=== PATIENT | male | born 1960 | race Caucasian/White ===

== ENCOUNTER 2019-04-06 01:31 | Emergency (ER) | payer OTHER ==
[~2019-04-06] VITALS: Ht 162.6 cm; Wt 100.7 kg
[~2019-04-06 01:31] MED LIST: ALPRAZOLAM0.25 MG PO; ANDROGEL2.5 G1 IM; ASPIRIN EC81 MG PO; CRUTCH1 EACH; FISH OIL 1,0001 EAC5 PO; HYDROCODON-ACE1 EA11 PO; OXYBUTYNIN CHLO15 MG PO; SERTRALINE HCL50 MG PO
--- OUTSIDE RECORDS SUMMARY | 2019-04-06 01:34 | XMS ---
PreManage Notification: ESTEBAN GARRETT Security [employer] Events No recent Security Events currently on file CRITERIA MET - [facility] Abelardo White Treatment Current PHONE: Unknown Jossy [place] Lizzy Current Orthopedic Surgery \T\ Fracture Clinic PHONE: Unknown Amanda has no Care Guidelines for this patient. Lisa VISIT COUNT (12 MO.) Keegan Cherry TOTAL 1 NOTE: Visits indicate total known visits. ED/UCC VISIT TRACKING (12 MO.) 04/06/2019 01:[address] [facility] TYPE: Emergency COMPLAINT: - CHEST PAIN/SOB INPATIENT VISIT TRACKING (12 MO.) No inpatient visits to display in this time frame [id number]
[2019-04-06] MEDS ORDERED: ESCITALOPRAM OX10 MG PO (01:38)
[2019-04-06] MEDS ORDERED: CILOSTAZOL100 MG PO (01:38)
[2019-04-06] MEDS ORDERED: GABAPENTIN300 MG PO (01:38)
[2019-04-06] MEDS ORDERED: QUETIAPINE FUM100 MG PO (01:39)
[2019-04-06] MEDS ORDERED: ATORVASTATIN CA10 MG PO (01:39)
--- NOTE | 2019-04-06 07:20 | EKG ---
[facility] [address] [facility] [place] [address] Signed Normal sinus rhythm Nonspecific T wave abnormality Prolonged QT Abnormal ECG No previous ECGs available Confirmed by TAHIR STARKEY MD ([id number]) on 04/06/2019 7:20:15 AM Electronically Signed By: TAHIR STARKEY MD 04/06/19 0720 PATIENT NAME: ESTEBAN GARRETT Electrocardiogram DATE OF : 60 PHYSICIAN: TAHIR STARKEY MD REPORT #: [id number] REPORT IS CONFIDENTIAL AND NOT TO BE RELEASED WITHOUT AUTHORIZATION
== END 2019-04-06 07:45 | disposition home or self-care (01) ==
LOC: ED 01:31
DX: R07.9 Chest pain, unspecified (principal); F41.9 Anxiety disorder, unspecified; Z87.891 Personal history of nicotine dependence; Z79.82 Long term (current) use of aspirin; Z79.899 Other long term (current) drug therapy
CPT/HCPCS: 71045; 80053; 83735; 84484; 85025; 93005; 93010; 99285-25

== ENCOUNTER 2019-08-15 06:20 | Day surgery (SDC) | payer OTHER ==
[~2019-08-15] VITALS: Ht 167.6 cm; Wt 103.4 kg
[~2019-08-15 06:20] MED LIST changes: +ANDROGEL2.5 G1 TD; +ATORVASTATIN CA10 MG PO; +CILOSTAZOL100 MG PO; +ESCITALOPRAM OX10 MG PO; +FISH OIL 1,0001 EAC2 PO; +GABAPENTIN300 MG PO; +QUETIAPINE FUM100 MG PO
--- NOTE | 2019-08-15 09:29 | NUR ---
08/15/19 0929 PRESTON MARQUEZ PATIENT ARRIVED FROM THE ENDO ROOM ON 2L OF OXYGEN. PATIENT IS AWAKE AND ABLE TO COMMUNICATE. SINCE ARRIVING AT 918 PATIENT HAS STATED HE HAS NO PAIN OR NAUSEA. PATIENT HAS BEEN ENCOURAGED TO PASS GAS AND IS CURRENTLY RESTING COMFORTABLY. PATIENT HAS NO QUESTIONS OR CONCERNS AT THIS TIME.
--- NOTE | 2019-08-15 12:44 | NUR ---
PT ALERT, ORIENTED AND SUPPORTED BY HIS ROSEY. HAS HAD PREVIOUS SCOPES, SEEMED RELAXED AND PREPARED. PT REQUESTED PRAYER, WILL FOLLOW NEEDED
--- NOTE | 2019-08-16 05:51 | OR ---
[facility] [address] [place], [place] [address] Signed DATE OF OPERATION: 08/15/2019 SURGEON: Stanley Rubalcava MD PREOPERATIVE DIAGNOSES: 1. Personal history of colorectal polyps in 2015. 2. Diverticulosis. 3. Prostate nodule with negative recent biopsy. POSTOPERATIVE DIAGNOSES: 1. 4 mm rectal polyps x3 at 8 cm. 2. 3-6 mm polyps at 35 cm, 40 cm, 50 cm, cecum, distal right colon, distal hepatic flexure, proximal transverse colon, 75 cm (clipped x2), 65 cm and 60 cm. 3. Louvjie-fg-vbycogei sigmoid diverticulosis. 4. Enlarged prostate (left greater than right). PROCEDURE: Colonoscopy with hot biopsy and clip x2 at 75 cm. FINDINGS: Jaison had a total of 23 polyps throughout the colon and rectum. All were measuring between 3 and 6 mm. We placed 2 clips at 75 cm due to some bleeding with good hemostasis. INDICATIONS: Jaison is a 59-year-old gentleman, asked to see me for followup colonoscopy. He came in 2014 and had an adenomatous polyp removed around 12 cm. He also has a little diverticulosis. He had multifocal PVCs at that time. He went through his cardiac evaluation recently and he said everything came out fine including his echocardiogram and stress test. He cannot remember the name of the e learning specialist with [facility]. Jaison remains very inquisitive and he reads on the Internet significantly. He has decided to discontinue all his medications currently. He also has a prostate nodule. He just had biopsies about a week ago and he told me it came back negative. Otherwise, he has no lower GI complaints. There is no family history of colon cancer or polyps. I met with Jaison and his in the office. I gave him a pamphlet on colonoscopy and we reviewed that together in detail. They understand the nature of the colonoscopy along with its risks including, but not limited to gas, bloating, crampy abdominal pain, bleeding, perforation requiring surgery, and missed diagnosis. He recalls the need for IV conscious sedation. He understands he will need an adult person to take him home after the procedure. They have expressed understanding Electronically Signed By: STANLEY RUBALCAVA MD 08/16/19 0551 PATIENT NAME: JAISON GARRETT OPERATIVE REPORT DATE OF : 60 REPORT #: [id number] PHYSICIAN: STANLEY RUBALCAVA MD PCP: TARA DAMON MD REPORT IS CONFIDENTIAL AND NOT TO BE RELEASED WITHOUT AUTHORIZATION [facility] [address] [place], [place] [address] Signed and wished to proceed. PROCEDURE NOTE: Jaison was taken into our endoscopy suite and placed in the left lateral decubitus position. He took a total of 8 mg of Versed and 200 mcg of fentanyl to cover the case. A digital rectal exam was performed and I could certainly perform. I could feel his enlarged prostate, the left being more than the right. The adult colonoscope was introduced and advanced all around into the cecum under direct visualization of camera without difficulty. He took some extra sedation and abdominal compression in order to advance the scope. His prep was quite good. We could easily see the appendiceal orifice and the ileocecal valve. The scope was slowly withdrawn. The above-mentioned polyps were removed with the help of hot biopsy forceps. They all measured between 3 and 6 mm. We did use two clips at 75 cm to control some bleeding. Again, he does have sigmoid diverticulosis. They are sxptiyyu-aq-crax, ghtaigs-em-tpsjhpmr in number, and scattered about. About 2/[address] through our procedure, our computer timed out, so the additional pictures were not captured by the computer. Nevertheless, we do have a apprenticeship representative sample pictures during the proximal 2/3rd of that procedure. Once in the rectum, the scope had been retroflexed and we did not see any additional pathology noted above the anal canal. After this, the gas was suctioned out and the colonoscope removed. Jaison tolerated the procedure quite well. RECOMMENDATIONS: I will see Jaison back in my office in 7 to 14 days to review the results. He cannot take aspirin or NSAIDs for one week following the procedure. He is strongly encouraged to resume his antihypertensive medications. The systolic blood pressure was running 140-212 throughout the procedure. Stanley Rubalcava MD ALB/MODL /[id number] cc: MD Tara Wood MD Electronically Signed By: STANLEY RUBALCAVA MD 08/16/19 0551 PATIENT NAME: JAISON GARRETT OPERATIVE REPORT DATE OF : 60 REPORT #: [id number] PHYSICIAN: STANLEY RUBALCAVA MD PCP: TARA DAMON MD REPORT IS CONFIDENTIAL AND NOT TO BE RELEASED WITHOUT AUTHORIZATION [address] [address] Signed MD Neeru Thomson MD Copies: ROBERT QUINTANA MD, ROBERT D DMD BOWER, ANDREW L MD ROGERS, AIMEE MD ~ Electronically Signed By: STANLEY RUBALCAVA MD 08/16/19 0551 PATIENT NAME: JAISON GARRETT OPERATIVE REPORT DATE OF : 60 REPORT #: [id number] PHYSICIAN: STANLEY RUBALCAVA MD PCP: TARA DAMON MD REPORT IS CONFIDENTIAL AND NOT TO BE RELEASED WITHOUT AUTHORIZATION
--- NOTE | 2019-08-16 16:50 | PATH ---
[facility] [address] [place], [place] [address] Signed SPECIMEN(S): A COLON POLYP AT 8 CM SPECIMEN(S): B COLON POLYP AT 35 CM SPECIMEN(S): C COLON POLYP AT 48 CM SPECIMEN(S): D COLON POLYP AT 50 CM SPECIMEN(S): E CECUM POLYP SPECIMEN(S): F ASCENDING DISTAL POLYP SPECIMEN(S): G HEPATIC FLEXURE DISTAL POLYP SPECIMEN(S): H TRANSVERSE PROXIMAL POLYP SPECIMEN(S): I COLON POLYP AT 75 CM SPECIMEN(S): J COLON POLYP AT 70 CM SPECIMEN(S): K COLON POLYP AT 65 CM SPECIMEN(S): L COLON POLYP AT 60 CM SPECIMEN SOURCE: A. COLON POLYP AT 8 CM B. COLON POLYP AT 35 CM C. COLON POLYP AT 48 CM D. COLON POLYP AT 50 CM E. CECUM POLYP F. ASCENDING DISTAL POLYP G. HEPATIC FLEXURE DISTAL POLYP H. TRANSVERSE PROXIMAL POLYP I. COLON POLYP AT 75 CM J. COLON POLYP AT 70 CM K. COLON POLYP AT 65 CM L. COLON POLYP AT 60 CM CLINICAL HISTORY: Hx colon polyps; diverticulosis/colorectal polyps; diverticulosis. MICROSCOPIC DESCRIPTION: Histologic sections of all submitted blocks are examined by light microscopy. These findings, together with the gross examination, support the pathologic diagnosis. FINAL PATHOLOGIC DIAGNOSIS: A. Mucosa, colon at 8 cm, biopsy: - Hyperplastic polyp. B. Mucosa, colon at 35 cm, biopsy: - Surface features suggestive but not entirely diagnostic of hyperplastic polyp (See comment). C. Mucosa, colon at 48 cm, biopsy: PATIENT NAME: ESTEBAN GARRETT PATHOLOGY DATE OF : 60 REPORT #: [id number] PHYSICIAN: FUENTES ADLER PCP: TARA DAMON MD REPORT IS CONFIDENTIAL AND NOT TO BE RELEASED WITHOUT AUTHORIZATION [facility] [address] [place], [place] [address] Signed - Hyperplastic polyp. D. Mucosa, colon at 50 cm, biopsy: - Tubular adenoma. E. Mucosa, cecum, biopsy: - Tubular adenoma. F. Mucosa, distal ascending colon, biopsy: - Tubular adenoma. G. Mucosa, colon, distal hepatic flexure, biopsy: - Tubular adenoma. H. Mucosa, proximal transverse colon, biopsy: - Tubular adenoma. I. Mucosa, colon at 75 cm, biopsy: - Hyperplastic polyp. J. Mucosa, colon at 70 cm, biopsy: - Tubular adenoma. K. Mucosa, colon at 65 cm, biopsy: - Tubular adenoma. L. Mucosa, colon at 60 cm, biopsy: - Tubular adenoma. COMMENT: BMultiple levels over three slides are examined. No adenomatous change or full thickness hyperplastic change is seen. LJA:cml:C2NR GROSS DESCRIPTION: Twelve specimens are received in twelve containers, labeled "LC." A. The specimen, labeled "LC, colon polyp at 8 cm," is received in formalin and consists of three gordon-white soft tissue fragments each measuring 0.3 cm in greatest dimension. The specimen is entirely submitted in cassette (A1). B. The specimen, labeled "LC, colon polyp at 35 cm," is received in formalin and consists of a 0.2 cm in greatest dimension irregular gordon-white soft tissue fragment. The specimen is entirely submitted in cassette (B1). C. The specimen, labeled "LC, colon polyp at 48 cm," is received in formalin and consists of a 0.2 cm in greatest dimension irregular gordon-white soft tissue fragment. The specimen is entirely submitted in cassette (C1). D. The specimen, labeled "LC, colon polyp at 50 cm," is received in formalin and consists of three gordon-white soft tissue fragments ranging from 0.2-0.3 cm in greatest dimension. The specimen is PATIENT NAME: ESTEBAN GARRETT PATHOLOGY DATE OF : 60 REPORT #: [id number] PHYSICIAN: FUENTES PATHOLOGY PCP: TARA DAMON MD REPORT IS CONFIDENTIAL AND NOT TO BE RELEASED WITHOUT AUTHORIZATION [facility] [address] [place], [place] [address] Signed entirely submitted in cassette (D1). E. The specimen, labeled "LC, cecum polyp," is received in formalin and consists of two gordon-white soft tissue fragments ranging from 0.2-0.3 cm in greatest dimension. The specimen is entirely submitted in cassette (E1). F. The specimen, labeled "LC, ascending distal polyp," is received in formalin and consists of three gordon-white soft tissue fragments ranging from 0.2-0.3 cm in greatest dimension. The specimen is entirely submitted in cassette (F1). G. The specimen, labeled "LC, hepatic flexure distal polyp," is received in formalin and consists of three gordon-white soft tissue fragments ranging from 0.2-0.3 cm in greatest dimension. The specimen is entirely submitted in cassette (G1). H. The specimen, labeled "LC, transverse proximal polyp," is received in formalin and consists of three gordon-white soft tissue fragments ranging from 0.2-0.3 cm in greatest dimension. The specimen is entirely submitted in cassette (H1). I. The specimen, labeled "LH, colon polyp at 75 cm," is received in formalin and consists of three gordon-white soft tissue fragments ranging from 0.2-0.3 cm in greatest dimension. The specimen is entirely submitted in cassette (I1). J. The specimen, labeled "LC, colon polyp at 70 cm," is received in formalin and consists of six gordon-white soft tissue fragments ranging from 0.2-0.3 cm in greatest dimension. The specimen is entirely submitted in cassette (G1). K. The specimen, labeled "LC, colon polyp at 65 cm," is received in formalin and consists of two gordon-white soft tissue fragments each measuring 0.3 cm in greatest dimension. The specimen is entirely submitted in cassette (K1). L. The specimen, labeled "LC, colon polyp at 60 cm," is received in formalin and consists of three gordon-white soft tissue fragments ranging from 0.2-0.3 cm in greatest dimension. The specimen is entirely submitted in cassette (L1). AR (under the direct supervision of a pathologist) The Gross Description was prepared using a voice recognition system. The report was reviewed for accuracy; however, sound-alike word errors, addition and/or deletions may occur. If there is any question about this report, please contact Client Services. PATIENT NAME: ESTEBAN GARRETT PATHOLOGY DATE OF : 60 REPORT #: [id number] PHYSICIAN: FUENTES PATHOLOGY PCP: TARA DAMON MD REPORT IS CONFIDENTIAL AND NOT TO BE RELEASED WITHOUT AUTHORIZATION [facility] [address] [place], [place] [address] Signed PERFORMING LABORATORY: The technical component was performed by [employer], [address] [place] [address] (Supervisor Tan Room: Mindi Lopes MD; CLIA# [id number]). Professional interpretation was performed by [facility], [address] [address] (Supervisor Tan Room: Brannon White MD; CLIA# [id number]). Diagnostician: Brannon White MD Pathologist Electronically Signed 08/16/2019 Copies: ~ PATIENT NAME: ESTEBAN GARRETT PATHOLOGY DATE OF : 60 REPORT #: [id number] PHYSICIAN: FUENTES PATHOLOGY PCP: TARA DAMON MD REPORT IS CONFIDENTIAL AND NOT TO BE RELEASED WITHOUT AUTHORIZATION
== END 2019-08-15 10:00 | disposition home or self-care (01) ==
LOC: DS 06:20 → OPS 06:20 → DS 06:45 → OPS 06:45 → DS 07:30 → OPS 10:00
PROVIDERS: Colon & Rectal Surgery
PROC: 0DBK8ZZ Excision of Ascending Colon, Via Natural or Artificial Opening Endoscopic (ICD-10-PCS; 2019-08-15)
PROC: 0DBH8ZZ Excision of Cecum, Via Natural or Artificial Opening Endoscopic (ICD-10-PCS; 2019-08-15)
PROC: 0DBL8ZZ Excision of Transverse Colon, Via Natural or Artificial Opening Endoscopic (ICD-10-PCS; 2019-08-15)
PROC: 0DBE8ZZ Excision of Large Intestine, Via Natural or Artificial Opening Endoscopic (ICD-10-PCS; principal; 2019-08-15 06:45)
DX: Z12.11 Encounter for screening for malignant neoplasm of colon (principal); D12.0 Benign neoplasm of cecum; D12.6 Benign neoplasm of colon, unspecified; D12.2 Benign neoplasm of ascending colon; D12.3 Benign neoplasm of transverse colon; K62.1 Rectal polyp; K63.5 Polyp of colon; K57.30 Diverticulosis of large intestine without perforation or abscess without bleeding; N40.0 Benign prostatic hyperplasia without lower urinary tract symptoms; K21.9 Gastro-esophageal reflux disease without esophagitis; Z86.010 Personal history of colon polyps; Z98.890 Other specified postprocedural states; Z87.891 Personal history of nicotine dependence
CPT/HCPCS: 99153; G0500; J2250; J3010

== ENCOUNTER 2023-01-13 07:43 | Day surgery (SDC) | payer OTHER ==
[~2023-01-13] VITALS: Ht 167.6 cm; Wt 104.1 kg
[~2023-01-13 07:43] MED LIST changes: +DEPO-TESTO200 MG/1 M IM; +FLOMAX0.4 MG PO; +ZESTRIL10 MG PO; +ZOLOFT20 MG/1 ML PO
--- NOTE | 2023-01-13 09:54 | NUR ---
01/13/23 [address] 3993-PATIENT ARRIVED TO PACU ON 10L MASK NONAROUSABLE ORAL AIRWAY IN PLACE RR EVEN. PATIENT PLACED ON 6L MASK. IVF INFUSING. ABDOMEN ROUND AND SOFT. SR.
--- NOTE | 2023-01-13 12:33 | OR ---
[facility] [address] [place], [place] [address] Signed DATE OF OPERATION: 01/13/2023 SURGEON: Stanley Rubalcava MD PREOPERATIVE DIAGNOSES: 1. Personal history of colonic polyps in 2015 at age 54. 2. Diverticulosis. 3. Father with colon cancer. POSTOPERATIVE DIAGNOSES: 1. Minimal sigmoid diverticulosis. 2. Minimal internal hemorrhoids. 3. A 7 mm polyp at 40 cm in the left colon (snare). 4. A 5 mm sessile polyp at 68 cm (left colon). 5. A 3 mm polyp at 45 cm (left colon). PROCEDURE: Colonoscopy with snare polypectomy and hot biopsy. ESTIMATED BLOOD LOSS: None. INDICATIONS: Jaison is a 62-year-old gentleman, who returns now for a followup colonoscopy. I helped him in 2014 at the age of 54 for screening purposes. He had a tubular adenomatous polyp as well as hyperplastic polyps removed at that time. They were all 7 mm or less in diameter. He also had diverticulosis. He came back in 2019 at the age of 59. Amazingly, he had 23 polyps removed in total, half were tubular adenomatous and the other were hyperplastic polyps. They were all 6 mm or less in diameter. Once again, he had diverticulosis. He always uses large amounts of Versed and fentanyl. Because of history of number of polyps, we did ask him to follow up in three years. He said he has no lower GI complaints. In the meantime, he has developed idiopathic pulmonary fibrosis on top of his COPD. He said he can only walk about 10 or 15 feet with anything heaviness in hands, he is to stop and take a break. He said it has been quite miserable. He has been working with his safety engineer. He said his lungs continued to get worse on a progressive basis. We had a long discussion in the office with Jaison and his . We decided this would probably be his last colonoscopy, only because he had so many polyps previously. At this point, he is definitely in need of monitored anesthesia care for his own safety with his lungs and his full face richards and other medical issues, including his daily marijuana and alcohol. He also reminded his father Electronically Signed By: STANLEY RUBALCAVA MD 01/13/23 1233 PATIENT NAME: JAISON GARRETT OPERATIVE REPORT DATE OF : 60 REPORT #: [id number] PHYSICIAN: STANLEY RUBALCAVA MD PCP: BERNY GARCIA MD REPORT IS CONFIDENTIAL AND NOT TO BE RELEASED WITHOUT AUTHORIZATION [facility] [address] [place], [place] [address] Signed had colon cancer. He had expressed understanding and wished to proceed. DESCRIPTION OF PROCEDURE: Jaison was taken into our endoscopy suite and placed in the left lateral decubitus position. He was given monitored anesthesia care with propofol per our nurse automotive mechanic. A digital rectal exam was performed and this was unremarkable. Really not much of anything in the way of external hemorrhoids. Good sphincter tone. There were no masses. The adult colonoscope was introduced and advanced under direct visualization of camera. There was a lot of spasm in the sigmoid and left colon. Therefore, we gave 1 mg of IV glucagon that helped out significantly. We used our snare on the polyp at 40 cm. We suctioned it through the scope and caught in our canister. The scope was then advanced up into the cecum itself. His prep was quite excellent. We could easily see the appendiceal orifice and the ileocecal valve. The scope was then slowly withdrawn. We took pictures throughout for photodocumentation. The other polyps were easily removed with the help of hot biopsy forceps. We saw just a few diverticula in the left colon. They were moderate in size, few in number, and scattered about. Once in the rectum, the scope had been retroflexed. He has very minimal if any internal hemorrhoid tissue. The gas was then suctioned out. The colonoscope removed. Jaison tolerated the procedure quite well. RECOMMENDATIONS: I will see Jaison back in my office in 7 to 14 days to review his results. Due mainly to his pulmonary status, this probably will be his last colonoscopy. Stanley Rubalacva MD ALB/MODL /[id number] cc: Dr. Berny Garcia Patient Chart Stanley Rubalcava MD Electronically Signed By: STANLEY RUBALCAVA MD 01/13/23 1233 PATIENT NAME: JAISON GARRETT OPERATIVE REPORT DATE OF : 60 REPORT #: [id number] PHYSICIAN: STANLEY RUBALCAVA MD PCP: BERNY GARCIA MD REPORT IS CONFIDENTIAL AND NOT TO BE RELEASED WITHOUT AUTHORIZATION [address] [address] Signed Copies: STANLEY RUBALCAVA MD ~ Electronically Signed By: STANLEY RUBALCAVA MD 01/13/23 1233 PATIENT NAME: JAISON GARRETT OPERATIVE REPORT DATE OF : 60 REPORT #: [id number] PHYSICIAN: STANLEY RUBALCAVA MD PCP: BERNY GARCIA MD REPORT IS CONFIDENTIAL AND NOT TO BE RELEASED WITHOUT AUTHORIZATION
--- NOTE | 2023-01-15 12:30 | PATH ---
[facility] [address] [place], [place] [address] Signed SPECIMEN(S): A COLON POLYP AT 40 CM SPECIMEN(S): B COLON POLYP AT 68 CM SPECIMEN(S): C COLON POLYP AT 45 CM SPECIMEN SOURCE: A. COLON POLYP AT 40 CM B. COLON POLYP AT 68 CM C. COLON POLYP AT 45 CM CLINICAL HISTORY: Family history of colon cancer. Postop: Polyps, internal hemorrhoids FINAL PATHOLOGIC DIAGNOSIS: A. Colon polyp at 40 cm, polypectomy: - Fragments of tubular adenoma. - Negative for high-grade dysplasia and malignancy. B. Colon polyp at 68 cm, polypectomy: - Tubular adenoma. - Negative for high-grade dysplasia and malignancy. C. Colon polyp at 45 cm, polypectomy: - Hyperplastic polyp. DF:llc:C2NR MICROSCOPIC EXAMINATION: Histologic sections of all submitted blocks are examined by light microscopy. These findings, together with the gross examination, support the pathologic diagnosis. GROSS DESCRIPTION: A. The specimen, labeled and designated "Garrett, L, 1." and designated on the requisition "colon polyp at 40 cm," is received in formalin and consists of four gordon soft tissue fragments that measure 0.2 to 0.3 cm in greatest dimension. The specimen is entirely submitted in (A1). B. The specimen, labeled and designated "Garrett, L, 2." and designated on the requisition "colon polyp at 68 cm," is received in formalin and consists of one gordon soft tissue fragment that is 0.3 cm in greatest dimension. The specimen is entirely submitted in (B1). C. The specimen, labeled and designated "Garrett, L, 3." and designated on the requisition "colon polyp at 45 cm," is received in formalin and consists of one gordon soft tissue fragment that is 0.4 cm in greatest dimension. The specimen is entirely submitted in (C1). PATIENT NAME: ESTEBAN GARRETT PATHOLOGY DATE OF : 60 REPORT #: [id number] PHYSICIAN: FUENTES PATHOLOGY PCP: CLARICE GARCIA MD REPORT IS CONFIDENTIAL AND NOT TO BE RELEASED WITHOUT AUTHORIZATION [facility] [address] [place], [place] [address] Signed FB (under the direct supervision of a pathologist) The Gross Description was prepared using a voice recognition system. The report was reviewed for accuracy; however, sound-alike word errors, addition and/or deletions may occur. If there is any question about this report, please contact Client Services. PERFORMING LABORATORY: The technical component was performed by [employer], [address] [place] [id number] (CLIA# [id number]). Professional interpretation was performed by [employer], [facility], [address] [place] [id number] (CLIA#: [id number]) Diagnostician: Tato Sevilla DO Pathologist Electronically Signed 01/15/2023 Copies: ~ PATIENT NAME: ESTEBAN GARRETT PATHOLOGY DATE OF : 60 REPORT #: [id number] PHYSICIAN: FUENTES ADLER PCP: CLARICE GARCIA MD REPORT IS CONFIDENTIAL AND NOT TO BE RELEASED WITHOUT AUTHORIZATION
== END 2023-01-13 10:40 | disposition home or self-care (01) ==
LOC: DS 07:43 → OPS 07:43 → DS 09:00 → OPS 10:40
PROVIDERS: ATTEND Colon & Rectal Surgery
PROC: 0DBM8ZZ Excision of Descending Colon, Via Natural or Artificial Opening Endoscopic (ICD-10-PCS; principal; 2023-01-13 09:00)
DX: D12.4 Benign neoplasm of descending colon (principal); K57.30 Diverticulosis of large intestine without perforation or abscess without bleeding; Z80.0 Family history of malignant neoplasm of digestive organs; Z86.010 Personal history of colon polyps; Z68.38 Body mass index [BMI] 38.0-38.9, adult; M15.9 Polyosteoarthritis, unspecified; N40.2 Nodular prostate without lower urinary tract symptoms; E78.5 Hyperlipidemia, unspecified; I73.9 Peripheral vascular disease, unspecified; F41.9 Anxiety disorder, unspecified; Z87.891 Personal history of nicotine dependence; E66.01 Morbid (severe) obesity due to excess calories; J84.10 Pulmonary fibrosis, unspecified; J44.9 Chronic obstructive pulmonary disease, unspecified; I10 Essential (primary) hypertension; K64.8 Other hemorrhoids; K63.5 Polyp of colon
CPT/HCPCS: 00811; J1610; J2704; J7121